=== PATIENT | male | born 1955 | race Caucasian/White ===

== ENCOUNTER 2017-06-05 08:33 | Day surgery (SDC) | payer OTHER ==
--- NOTE | 2017-06-04 15:11 | HISTORY AND PHYSICAL E ---
History and Physical NAME: SRIDEVI LOU : 1955 AGE: 62Y ADMITTED: 06/05/2017 ROOM: HISTORY OF PRESENT ILLNESS: Patient is 62 years old. Patient referred to us by Amaris for history of polyps. SOCIAL HISTORY: Single. Smokes 1 pack of cigarettes a day. Drinks occasional beer. 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 REVIEW OF SYSTEMS: CARDIAC: Hypertension. Stent. GASTROINTESTINAL: History of polyps. ONCOLOGY/HEMATOLOGY: Cancer of the right kidney. Sarcoma of the neck. PHYSICAL EXAMINATION: VITAL SIGNS: Blood pressure 150/90, pulse 80, respirations 20, temp is 98. HEAD, EYES, EARS, NOSE, THROAT: Normal. NECK: Supple. LUNGS: Clear. ABDOMEN: Soft. NEUROLOGIC: Negative. MEDICATIONS: 1. Lipitor. 2. Lisinopril. 3. Toprol. 4. Aspirin. CONCLUSION: Colon screening. History of polyps. PLAN: Colonoscopy scheduled 06/05. DICTATING PHYSICIAN: ARTURO KO M.D. [id number] [id number] Y#: [id number] ID: [id number] JOB#: [id number] ACCT: [id number] cc:ARTURO KO M.D. >
[~2017-06-05 08:33] MED LIST: EPINEPHRINE INJ 1 MG/10 ML DISP.SYRIN ONE; FENTANYL CITRATE INJ/PF 100 MCG/2 ML AMPUL ONE; FLUMAZENIL INJ 0.5 MG/5 ML VIAL IV ONE; GLUCAGON,HUMAN RECOMB 1 MG INJ ONE; GLYCOPYRROLATE INJ 0.4 MG/2 ML VIAL ONE; LIDOCAINE 2% JELLY 30 ML TUBE ONE; NALOXONE HCL INJ/PF 0.4 MG/1 ML SDV ONE; ONDANSETRON HCL INJ/PF 4 MG/2 ML SDV ONE
[2017-06-05] MEDS: MIDAZOLAM 2 MG/2 ML INJ ONE ×2 (09:05→09:09)
[2017-06-05 10:11] LABS: ABSOLUTE BASOPHILS # (AUTO) 0.1 10^3/uL (0.0-0.2); ABSOLUTE EOSINOPHILS # (AUTO) 0.4 10^3/uL (0.0-0.6); ABSOLUTE LYMPHOCYTES (AUTO) 1.9 10^3/uL (0.5-4.7); ABSOLUTE MONOCYTES (AUTO) 0.6 10^3/uL (0.1-1.4); ABSOLUTE NEUT (AUTO) 6.9 10^3/uL (1.7-8.2); BASOPHILS % (AUTO) 0.9 % (0-2); EOSINOPHILS % (AUTO) 3.6 % (0-6); HEMATOCRIT 48.5 % (37.9-51.0); HEMOGLOBIN 16.6 g/dL (13.5-17.0); HGB HCT DIFFERENCE 1.3; LYMPHOCYTES % (AUTO) 19.6 % (13-45); MEAN CORPUSCULAR HEMOGLOBIN 32.5 pg (27.0-33.4); MEAN CORPUSCULAR HGB CONC 34.2 g/dL (32.0-36.0); MEAN CORPUSCULAR VOLUME 95 fl (80-97); MONOCYTES % (AUTO) 6.4 % (3-13); RED BLOOD COUNT 5.11 10^6/uL (4.35-5.55); RED CELL DISTRIBUTION WIDTH 13.2 % (11.5-14.0); SEGMENTED NEUTROPHILS % (AUTO) 69.5 % (42-78); WHITE BLOOD COUNT 9.9 10^3/uL (4.0-10.5)
[2017-06-05 10:24] LABS: ALANINE AMINOTRANSFERASE 47 U/L (21-72); ALBUMIN 3.6 g/dL (3.5-5.0); ALKALINE PHOSPHATASE 86 U/L (38-126); ANION GAP 9 (5-19); ASPARTATE AMINO TRANSFERASE 29 U/L (17-59); BILIRUBIN,DIRECT 0.3 mg/dL (0.0-0.4); BILIRUBIN,TOTAL 1.2 mg/dL (0.2-1.3); BLOOD UREA NITROGEN 12 mg/dL (7-20); CALCIUM 8.3 mg/dL (8.4-10.2); CARBON DIOXIDE 25 mmol/L (22-30); CHLORIDE 102 mmol/L (98-107); CREATININE RESULT 1.04 mg/dL (0.52-1.25); GLUCOSE 270 mg/dL (75-110); POTASSIUM 3.7 mmol/L (3.6-5.0); SODIUM 135.6 mmol/L (137-145); TOTAL PROTEIN 6.2 g/dL (6.3-8.2)
[2017-06-05 10:25] VITALS: BP 102/66
[2017-06-05 10:55] LABS: CARCINOEMBRYONIC ANTIGEN 1.5 ng/mL (<3.0)
--- NOTE | 2017-06-05 14:48 | DISCHARGE SUMMARY E ---
Discharge Summary NAME: SRIDEVI LOU : 1955 AGE: 62Y ADMITTED: 06/05/2017 DISCHARGED: 06/05/2017 HISTORY: The patient is a 62-year-old male who presented for colon exam. He did have a sessile lesion in the descending colon and a polyp in the distal ascending. Sigmoid and descending colon diverticulosis. DISCHARGE PLAN: Awaiting biopsy, lab studies, consideration for referral to tertiary center for further evaluation in the next few weeks. Consider referral to [facility] for evaluation and definitive treatment. Soft, low-residue diet. Hold aspirin and nonsteroidals. Lab studies. Follow-up office visit next week. FINAL DIAGNOSES: 1. Polyps in the descending colon with diverticulosis. 2. Sessile lesion in descending colon. 3. Lipoma, proximal ascending. 4. Adenoma polyp, distal ascending. DICTATING PHYSICIAN: ARTURO KO M.D. 1209M [id number] PHY#: [id number] ID: [id number] JOB#: [id number] ACCT: [id number] cc:ARTURO KO M.D. >
--- NOTE | 2017-06-05 14:48 | OPERATIVE REPORT E ---
Operative Report NAME: SRIDEVI LOU : 1955 AGE: 62Y DATE OF SURGERY: 06/05/2017 ROOM: PREOPERATIVE DIAGNOSIS: History of polyps. POSTOPERATIVE DIAGNOSIS: 1. Sessile polyp in the descending colon which was seen on prior colonoscopy. 2. There is Silvana ink proximal descending. 3. There is another polyp in the descending colon as well. 4. Severe diverticulosis sigmoid colon. 5. Sessile polyp mid ascending colon. PROCEDURE: Colonoscopy. SURGEON: ARTURO KO M.D. TISSUE REMOVED OR ALTERED: 1. Biopsy polyp in the descending colon. 2. Biopsy polyp ascending colon DESCRIPTION OF PROCEDURE: Cecum looks normal. Ascending colon shows lipoma. Distal ascending shows a sessile polyp, biopsy obtained. Strong peristalsis, difficult to biopsy. Benign looking ascending colon polyp. Transverse colon diverticulosis. Descending colon shows sessile lesion closer to the splenic curve. The patient has sigmoid diverticulosis. DISCHARGE PLAN: 1. Awaiting biopsy results. 2. Patient needs surgical consult. We will refer her to tertiary center to have definite extended left colon resection. Patient may need prior colonoscopy, maybe resection of the ascending colon polyp, pending biopsy. The patient's cecum is normal. He has sessile polyp in the distal ascending colon, difficult to resect, in adequate prep, large amount of stool. Transverse colon diverticulosis, descending colon diverticulosis, sessile lesion descending colon, sigmoid diverticulosis. PLAN: 1. Patient needs extended left hemicolectomy. 2. Patient needs another look in the right colon with better prep prior to surgery. 3. Patient will benefit from referral to tertiary center for repeat colonoscopy and consideration for left hemicolectomy. DICTATING PHYSICIAN: ARTURO KO M.D. [id number] PHY#: [id number] ID: [id number] JOB#: [id number] ACCT: [id number] cc:[facility], ARTURO KO M.D. >
== END 2017-06-05 10:30 | disposition home or self-care (01) ==
LOC: END 08:33
PROVIDERS: ATTEND Specialist
PROC: 0DBM8ZX Excision of Descending Colon, Via Natural or Artificial Opening Endoscopic, Diagnostic (ICD-10-PCS; 2017-06-05)
PROC: 0DBK8ZX Excision of Ascending Colon, Via Natural or Artificial Opening Endoscopic, Diagnostic (ICD-10-PCS; 2017-06-05)
PROC: 0DBN8ZX Excision of Sigmoid Colon, Via Natural or Artificial Opening Endoscopic, Diagnostic (ICD-10-PCS; principal; 2017-06-05 09:00)
DX: D12.5 Benign neoplasm of sigmoid colon (principal); D12.4 Benign neoplasm of descending colon; D12.2 Benign neoplasm of ascending colon; K57.30 Diverticulosis of large intestine without perforation or abscess without bleeding; F17.210 Nicotine dependence, cigarettes, uncomplicated; I10 Essential (primary) hypertension; Z79.899 Other long term (current) drug therapy; Z79.82 Long term (current) use of aspirin; Z85.528 Personal history of other malignant neoplasm of kidney; Z85.831 Personal history of malignant neoplasm of soft tissue
CPT/HCPCS: 45380; 36415; 82378; 85025; 80053; 88305 ×2; J2250; J3010; J1610; J2405; J0171; J2310; J3490